=== PATIENT | female | born 1985 | race Caucasian/White ===

== ENCOUNTER 2016-12-25 15:40 | Inpatient (IN) | payer OTHER ==
[~2016-12-25] VITALS: Ht 162.6 cm; Wt 97.7 kg
[~2016-12-25 15:40] MED LIST: PHEN16.228; RABE20TA5
--- NOTE | 2016-12-25 16:22 | TRIAGE ---
OB Triage Datetime Report Generated by CPN: 12/25/2016 16:22 Datetime: 12/25/2016 16:00 Maternal Assessment Level of Consciousness: Fully Conscious DTR's/Clonus: DTRs 1+ Headache: Denies Blurred Vision: No Respiratory Effort: Unlabored Breath Sounds, Left: Clear and Equal Breath Sounds, Right: Clear and Equal Nausea/Vomiting: Denies RUQ Epigastric Pain: Denies Facial Edema: 1+ Labor Evaluation Frequency: OCC Monitor Mode: External Duration (sec)2399: 20-30 Quality: Mild Pattern: Normal: <= 5 Contractions in 10 Minutes Resting Tone [place]: Relaxed Heart Rate FHR Baseline Rate: 150 Monitor Mode: External US Variability: Moderate 6-25 bpm Accelerations: 15X15 Decelerations: None Category: Category I Pain Assessment Pain Scale: 0 Pain Presence: None/Denies Pain Type: N/A Pain Goal: 3 Vaginal Exam Membrane Status: Ruptured Membranes Rupture Method: Spontaneous Amniotic Fluid Amount: Large Amniotic Fluid Odor: None Nitrazine: Positive Datetime: 12/25/2016 15:46 EGA: 28.1 Datetime: 12/25/2016 15:45 Stage of : OB Triage Datetime: 12/25/2016 15:40 Time of Arrival: 12/25/2016 15:40 Arrived By: Ambulatory Chief Complaint: R/O SROM Movement: Present Contractions: Denies/Absent Rupture of Membranes: Denies Vaginal Bleeding: None Vaginal Discharge: Denies Recent Sexual Intercouse: Denies Abdominal Trauma: Not Applicable Patient Complaints: Other Additional Patient Complaints: NONE Time Provider Notified: 12/25/2016 15:51 Provider Notified: DAVID Initial Plan: U/S, LABS, ANTIBIOTICS, BETA
[2016-12-25 16:28] LABS: ADD SCAN DIFF NO
[2016-12-25] MEDS ORDERED: MISOPROSTOL 200 MCG TAB PR PRN (16:30)
[2016-12-25] MEDS ORDERED: CARBOPROST 250 MCG INJ IM PRN (16:30)
[2016-12-25] MEDS ORDERED: MAGNESIUM SULFATE 4 GM/100 ML 100 ML IV ONE (16:30)
[2016-12-25] MEDS ORDERED: METHYLERGONOVINE 0.2 MG INJ IM PRN (16:30)
[2016-12-25] MEDS ORDERED: OXYTOCIN 30 UNITS/LR 500 ML IV PRN (16:30)
[2016-12-25] MEDS: LACTATED RINGER'S 1,000 ML IV SCH ×3 (16:33→23:59)
[2016-12-25 16:34] LABS: BASOPHILS % 0.1 % (0.0-2.0); EOSINOPHILS # 0.2 10^3/ul (0.0-0.5); HEMOGLOBIN 10.3 g/dl (12.0-16.0); LYMPHOCYTES # 1.6 10^3/ul (0.8-2.9); LYMPHOCYTES % 10.7 % (15.0-51.0); MEAN CORPUSCULAR HEMOGLOBIN 31.4 pg (29.0-33.0); MEAN CORPUSCULAR HGB CONC 33.2 g/dl (32.0-37.0); MEAN CORPUSCULAR VOLUME 94.5 fl (82.0-101.0); MEAN PLATELET VOLUME 9.9 fl (7.4-10.4); MONOCYTE # 0.9 10^3/ul (0.3-0.9); MONOCYTES % 5.9 % (0.0-11.0); NEUTROPHIL # 12.3 10^3/ul (1.6-7.5); PLATELET COUNT 244 10^3/UL (140-415); RED BLOOD COUNT 3.28 10^6/ul (4.20-5.40); RED CELL DISTRIBUTION WIDTH 12.8 % (11.5-14.5)
[2016-12-25 16:42] LABS: ALBUMIN 3.4 g/dl (3.3-4.9); INR 0.9; PROTIME 12.1 Sec (12.2-14.2); PT RATIO 0.9
[2016-12-25 16:43] LABS: PARTIAL THROMBOPLASTIN TIME 28.6 Sec (25.0-35.0); POTASSIUM 3.7 mmol/L (3.5-5.1)
[2016-12-25 16:45] LABS: CREATININE 0.5 mg/dl (0.44-1.00)
[2016-12-25 16:46] LABS: TOTAL PROTEIN 6.8 g/dl (6.1-8.1); URIC ACID 3.9 mg/dl (3.1-7.9)
[2016-12-25] MEDS ORDERED: AMPICILLIN 2 GM/NS (PMX) 100 ML ONE (16:51)
[2016-12-25] MEDS: AMPICILLIN 2 GM/NS (PMX) 100 ML IVPB SCH ×2 (16:53→23:57)
[2016-12-25] MEDS: BETAMET NA PHOS/AC(6 MG/ML) 5ML INJ IM SCH (16:53)
--- NOTE | 2016-12-25 17:10 | RADRPT ---
PROCEDURE: Obstetrical ultrasound. CLINICAL INDICATION: , evaluation. Pelvic pain. Premature rupture of membranes TECHNIQUE: Transabdominal sonographic images of the pelvis are obtained. COMPARISON: No prior studies are available for comparison. FINDINGS: Single intrauterine gestation. There is a breech presentation. Measurements were made in order to determine age. The results are as follows: BPD = 6.84 cm HC = 25.02 cm AC = 21.53 cm FL = 4.89 cm Oligohydramnios is evident with no significant vertical pocket seen. Heart rate = 144 beats per minute The placenta is anterior. There is no evidence for an abruption or placenta previa. Ovaries are not visualized. IMPRESSION: Single intrauterine gestation of approximately 26 weeks 6 days by ultrasound criteria. [place] estimated weight = 926 g; <3 percentile for gestational age of 28 weeks 1 days. Oligohydramnios is evident without any significant vertical pocket of amniotic fluid identified comp atible with the history of premature rupture of membranes. RPTAT: AADD .Harvey Montoya MD, MD Date Time Electronically viewed and signed by .Harvey Montoya MD, on 12/25/2016 17:10 .B/
--- NOTE | 2016-12-25 17:19 | RADRPT ---
PROCEDURE: OB ultrasound for biophysical profile CLINICAL INDICATION: Biophysical profile. TECHNIQUE: Multiple sonographic images of the pelvis were obtained. Transabdominal view of the gr avid uterus are available for review. The images were reviewed on a PACS workstation. COMPARISON: Earlier study from the same date. FINDINGS: breathing movement = 2/2 tone = 2/2 motion = 2/2 Quantitative amniotic fluid volume = 0/2 KAT = 3.7 cm Single live intrauterine with cardiac activity at 146 beats per minute. There is a anterior placenta without previa. IMPRESSION: 1. Single living intrauterine gestation. 2. Biophysical profile = 03/02. 3. KAT = 3.7 cm consistent with oligohydramnios secondary to premature rupture of membranes. RPTAT: [facility] Physician Laurel Date Time Electronically viewed and signed by Physician Laurel on 12/25/2016 17:18 /
--- NOTE | 2016-12-25 18:15 | QN ---
Documentation Comment Laborist CTSP 2/2 decel. FHT back to 150s on entry. On review of FHT, variable shaped decels x2 noted to umesh of 80s. BP also reviewed and consistently 140-150s/70s Pt denies RODRIGUEZ, visual changes and RUQ pain SSE performed and cervix appears long and closed with clear fluid in vault A/P: PPROM at 28+1wks GA w/o e/o PTL, abruption or chorio and elevated BPs without sxs. Hx of C/S at 24wks GA ->Variable decels c/w oligo in the setting of PPROM. No e/o cord prolapse at this time. Continue resuscitative measures w/position changes, O2 and fluid bolus prn ->CPM for PPROM per Dr. Matson ->Straight cath urine specimen to assess for proteinuria, majority of labs needed for PreE evaluation ordered on admission and wnl Plan d/w pt. Questions answered to pt and partner's satisfaction YESSI HOOD MD Dec 25, 2016 18:15
[2016-12-25] MEDS: MAGNESIUM SULFATE 20 GM/500 ML 500 ML IV SCH (18:16)
[2016-12-25] MEDS: ERYTHROMYCIN LACTOBIONATE 500 MG in SOD CHLORIDE 0.9% 100 ML IVPB SCH (18:23)
[2016-12-25 18:25] LABS: ADD UMIC YES; URINE BILIRUBIN (Dip) NEGATIVE (NEGATIVE); URINE BLOOD (Dip) TRACE (NEGATIVE); URINE COLOR LT. YELLOW (YELLOW); URINE GLUCOSE (Dip) NEGATIVE (NEGATIVE); URINE KETONES (Dip) 15 (NEGATIVE); URINE LEUKOCYTE ESTERASE (Dip) TRACE (NEGATIVE); URINE NITRITE (Dip) NEGATIVE (NEGATIVE); URINE TOTAL PROTEIN (Dip) NEGATIVE (NEGATIVE); URINE UROBILINOGEN (Dip) 0.2 E.U./dL (0.1-1.0)
[2016-12-25 18:41] LABS: BARBITURATES Negative (NEGATIVE); BENZODIAZEPINES Negative (NEGATIVE); CANNABINOIDS Negative (NEGATIVE); COCAINE Negative (NEGATIVE); OPIATES Negative (NEGATIVE)
[2016-12-25 18:50] LABS: SQUAMOUS EPITHELIAL CELL,UR FEW
[2016-12-26] MEDS: ERYTHROMYCIN LACTOBIONATE 500 MG in SOD CHLORIDE 0.9% 100 ML IVPB SCH ×4 (00:23→17:44)
[2016-12-26] MEDS: LACTATED RINGER'S 1,000 ML IV SCH ×4 (00:30→22:30)
[2016-12-26] MEDS: MAGNESIUM SULFATE 20 GM/500 ML 500 ML IV SCH ×3 (02:29→22:34)
[2016-12-26] MEDS ORDERED: MAGNESIUM SULFATE 20 GM/500 ML 500 ML IV SCH (05:46)
[2016-12-26] MEDS ORDERED: MAGNESIUM SULFATE 4 GM/100 ML 100 ML IV ONE (06:00)
[2016-12-26] MEDS: AMPICILLIN 2 GM/NS (PMX) 100 ML IVPB SCH ×3 (06:08→16:56)
--- NOTE | 2016-12-26 07:46 | HP ---
DATE OF ADMISSION: 12/25/2016 HISTORY OF PRESENT ILLNESS: This is a 31-year-old lady, 4, para 1 with 2 spontaneous aborti ons. She is about 28 weeks . Admitted because of breech presentation with ruptured bag of alfonso at 9:50 a.m. on 12/25/2016 followed by mild irregular contractions. She had care in my [facility] office, and the care was uneventful. PAST PERSONAL HISTORY: No history of diabetes, TB, asthma. ALLERGIES: NO ALLERGIES. SOCIAL HISTORY: The patient does not smoke. She does not drink. MEDICATIONS: She does not take any drugs except her iron and vitamins. GYNECOLOGICAL HISTORY: She had menarche at the age of 13, every 28 days interval, 3 to 4 days' dura tion, and moderate in amount. FAMILY HISTORY: Father has diabetes and hypertension. OBSTETRICAL HISTORY: She is 4, para 1. Her first delivery was 12 years ago at 24 weeks by weighing 685 g. REVIEW OF SYSTEMS: CARDIOVASCULAR: No chest pains. RESPIRATORY: No cough. GASTROINTESTINAL: No diarrhea, no vomiting. GENITOURINARY: No dysuria. PHYSICAL EXAMINATION: GENERAL: Reveals a conscious coherent lady and in no acute distress. VITAL SIGNS: Her blood pressure 120/80, pulse rate 80 per minute, respirations 16 per minute. BREASTS: Within normal limits. HEART: Within normal limits. LUNGS: Within normal limits. ABDOMEN: Soft. No organomegaly. Fundic height 28 cm. heart tones 140 per minute. SPECULUM exam: Reveals the cervix to be closed with clear fluid coming from the vagina. Positive Nitrazine was noted. RECTAL AND PELVIC: Confirmed the pelvic findings. EXTREMITIES: No pedal edema. ADMITTING DIAGNOSIS: A 28 weeks intrauterine with premature rupture of membranes, possibl e labor. The patient was planned to have betamethasone on December 29, erythromycin, and magnesium sulfate. Th e plans were explained to the patient, and she understood everything totally. The risks, benefits, alternatives were discussed with her as well. Dictated By: NIRMAL BOWLING/NTS Conf#: [id number] DID#: [id number]
[2016-12-26] MEDS: FERROUS SULFATE (EC) 325 MG TAB PO SCH (09:24)
[2016-12-26] MEDS: MULTIVIT/MIN/FOLATE/IRON/PREN TAB PO SCH (09:24)
[2016-12-26 10:04] VITALS: Ht 162.6 cm; Wt 97.7 kg
--- NOTE | 2016-12-26 15:18 | CONS ---
DATE OF ADMISSION: 12/25/2016 DATE OF CONSULTATION: REFERRING PHYSICIAN: Dr. Paty Matson. HISTORY OF PRESENT ILLNESS: I was asked to talk with this mother who is in premature labor with ges tational age of 28.1 weeks and estimated weight of 926 grams. Mother is a 31-year-old 4, para 1, SAB 2 with an EDC of 03/18. Maternal labs show blood type O positive, antibody negative , RPR nonreactive, rubella immune, HBsAg negative, GC and chlamydia cultures negative. There were n o other problems documented during . Mother ruptured on 12/25/2016 a.m. and was subsequent ly admitted to the hospital in labor. She was started on magnesium sulfate on 12/25/2016 at 1630 hours as well as received 1 dose of betamethasone at 1640 hours. She was also started on anti biotics. I talked with both mother as well as father about the infant being at 28 weeks with an estim ated weight of 926 grams, less than 3rd percentile on ultrasound. These parents had a 24-week premature who is 12 years old now and doing well at the present time with no developmental p roblems, but however, has problems with eyesight. Parents are extremely familiar with the course in NICU as they have a 24-weeker. I discussed with them about mother receiving betamethasone as well as risk of respiratory distress s yndrome and treatment with oxygen administration, high-flow nasal cannula, CPAP as well as nasal IMV and surfactant administration if oxygen requirement is high. I also discussed about high risk of a pnea of prematurity and treatment with caffeine and nasal cannula as well as CPAP as required. Disc ussed about high risk of infection due to prematurity as well as rupture of membranes and treatment with antibiotics. Mother was also noted to be GBS positive on 11/17/2016. I also discussed about t he infant to be monitored for risk of sepsis during the entire hospitalization. Discussed about the being n.p.o. on admission and subsequently to be started on feedings when clinically stable with gavage feedings and TPN as well as a PICC line placement for TPN. Parents understand the risks and benefits of TPN. I also discussed about hyperbilirubinemia, feeding intolerance, including gas troesophageal reflux and risk for necrotizing enterocolitis. Discussed about the possibility of oxy gen requirement for long periods of time and possible oxygen requirement at the time of discharge. Discussed about the risk of intraventricular hemorrhage being 28 weeks premature , and at risk for neurodevelopmental delay due to prematurity as well as intraventricular hemorrhage. Discussed about length of hospitalization for 10 to 12 weeks depending on infant's clinical course a s well as response to treatment. Discussed about the mortality as well as morbidity for a 28-week p remature , including survival of up to 80 to 90%. Parents do understand that the infant is at risk for increased risk of neurodevelopmental delay and mortality and morbidity due to prematurity as well as rupture of membranes. I also discussed about procedures during NICU including intubation, umbilical arterial and venous ca theterization, PICC line placement, PAL line placement as needed and blood transfusions. As stated, the parents of a 24-week premature are extremely familiar with all the procedures and answered all questions, the discussion was concluded. Parents had no further questions. Dictated By: ZIGGY FREY/WARREN Conf#: [id number] DID#: [id number]
[2016-12-26] MEDS: BETAMET NA PHOS/AC(6 MG/ML) 5ML INJ IM SCH (17:00)
[2016-12-27] MEDS: ERYTHROMYCIN LACTOBIONATE 500 MG in SOD CHLORIDE 0.9% 100 ML IVPB SCH ×4 (00:05→18:50)
[2016-12-27] MEDS: AMPICILLIN 2 GM/NS (PMX) 100 ML IVPB SCH ×4 (00:05→17:45)
[2016-12-27] MEDS: MAGNESIUM SULFATE 20 GM/500 ML 500 ML IV SCH ×2 (08:25→17:51)
[2016-12-27] MEDS: FERROUS SULFATE (EC) 325 MG TAB PO SCH (09:21)
[2016-12-27] MEDS: DOCUSATE SODIUM 100 MG CAP PO SCH ×2 (09:21→21:14)
[2016-12-27] MEDS: FAMOTIDINE 20 MG TAB PO SCH ×2 (09:21→21:14)
[2016-12-27] MEDS: MULTIVIT/MIN/FOLATE/IRON/PREN TAB PO SCH (09:21)
--- NOTE | 2016-12-27 13:16 | CONS ---
DATE OF ADMISSION: 12/25/2016 DATE OF CONSULTATION: 12/26/2016 HISTORY OF PRESENT ILLNESS: The patient is at 28 weeks and 2 days who presented with rupture of mem brane on Monday. She was subsequently placed on magnesium sulfide, betamethasone was started. She was also placed on IV antibiotics, ampicillin, and erythromycin. She has a history consistent with delivery at 24 weeks. PAST MEDICAL HISTORY: Negative. OBSTETRIC HISTORY: Per ____. PHYSICAL EXAMINATION: VITAL SIGNS: Stable, no fever. Physical exam Deferred. heart tone reassuring for gestational age, some irritability. IMPRESSION: Intrauterine at 28 weeks and 2 days, premature rupture of membrane da y #2. On magnesium sulfate status post betamethasone x1, on IV antibiotics, ampicillin, and erythro mycin. History of a delivery at 24 weeks. RECOMMENDATIONS: 1. Continue with the magnesium sulfate 24 hours after the second dose of betamethasone. 2. Continue with the IV antibiotics for 5 days. 3. Delivery is recommended if there are non-reassuring heart tones, chorioamnionitis. Otherw ise, at 34 weeks. NICU consult. Continuous heart tone monitoring. Dictated By: MEJIA GHOSH/NTS Conf#: [id number] DID#: [id number]
[2016-12-27] MEDS: LACTATED RINGER'S 1,000 ML IV SCH (17:45)
[2016-12-28] MEDS: AMPICILLIN 2 GM/NS (PMX) 100 ML IVPB SCH ×2 (00:03→05:41)
[2016-12-28] MEDS: ERYTHROMYCIN LACTOBIONATE 500 MG in SOD CHLORIDE 0.9% 100 ML IVPB SCH ×2 (01:03→06:46)
[2016-12-28] MEDS ORDERED: MAGNESIUM SULFATE 20 GM/500 ML 500 ML IV SCH (08:30)
[2016-12-28] MEDS ORDERED: FENTAnyl 50 MCG/ML VIAL IV ONE (09:00)
[2016-12-28] MEDS ORDERED: LACTATED RINGER'S 1,000 ML IV SCH (09:17)
[2016-12-28] MEDS ORDERED: OXYTOCIN 30 UNITS/LR 500 ML IV SCH (09:30)
[2016-12-28] MEDS ORDERED: METHYLERGONOVINE 0.2 MG INJ IM PRN ×2 (09:30→10:30)
[2016-12-28] MEDS ORDERED: CEFAZOLIN 2 GM/50 ML (PMX) 50 ML IVPB SCH (09:30)
[2016-12-28] MEDS ORDERED: MISOPROSTOL 200 MCG TAB PR PRN ×2 (09:30→10:30)
[2016-12-28] MEDS ORDERED: OXYTOCIN 30 UNITS/LR 500 ML IV PRN ×2 (09:30→10:30)
[2016-12-28] MEDS ORDERED: CARBOPROST 250 MCG INJ IM PRN ×2 (09:30→10:30)
--- NOTE | 2016-12-28 09:43 | RADRPT ---
PROCEDURE: Limited OB ultrasound CLINICAL INDICATION: Vaginal bleeding TECHNIQUE: Sonographic evaluation to assess the placenta was performed. Transabdominal imaging of the gravid uterus was performed. COMPARISON: OB ultrasound dated 12/25/2016 FINDINGS: There is a single live intrauterine with cardiac activity, with a heart rate o f 121 bpm. position is breech. The placenta is anterior. There is no evidence of placental abruption or previa. The KAT measures 2.5 cm. IMPRESSION: 1. There is no evidence of placental abruption or previa. 2. Breech presentation. 3. Oligohydramnios. KAT measures 2.5 cm. RPTAT: HH .Katelynn Oviedo MD, MD Date Time Electronically viewed and signed by .Katelynn Oviedo MD, on 12/28/2016 09:42 .G/
[2016-12-28] MEDS ORDERED: OXYTOCIN 30 UNITS/LR 500 ML IV ONE (09:54)
--- NOTE | 2016-12-28 10:22 | QN ---
Documentation Comment I was called due to immediate unavailability of the attending OB, when the patient was complaining of feeling cramps and contractions. Attended to the bed side. Patient was in mild- moderate distress. NST: Variables down to 90 with quick recovery. SSE: Cervix appears to be closed and long. Assessment: 1. IUP at 28 weeks and 4 days Admitted for PPROM S/p Magnesium S/p 2 doses of steriod=, currently > 24 hours post Magnesium. 2 hours ago magnesium stopped. now feeling cramps History of PTD at 24 weeks History of section x 1 On Amp/ erythro for latency s/p timur/ zuhair consult Plan: restart Magnesium 2 grams/ hour Continuos monitoring I have discussed with the patient about possibility of section in case of break through tocolysis. Will monitor closely risks and benefits of section including risk for infection, bleeding, damage to adjacent structures including bowel and bladder and risk for blood transfusion including but not limited to transfusion reactions and HIV. Hepatitis B and C discussed. informed constent obtained Patient will be transferred to L&D for close monitoring NPO MANUEL BEARD MD Dec 28, 2016 10:22
[2016-12-28 10:29] LABS: AADO2 Cord Arterial 66.4 mmHg; Arterial Cord Blood pCO2 44.1 mmHG (25-50); CBA Oxygen Sat 62.9 mmHG; CBA Total Hemglobin 15.4 g/dl; Cord Blood Arterial pO2 30.5 mmHG (15.0-45.0); Fraction OxyHgb Cord Arterial 61.4 %; MODE ROOM AIR; MetHgb Cord Arterial 1.1 %; Sample Type CBA
[2016-12-28] MEDS: LACTATED RINGER'S 1,000 ML IV* SCH ×2 (10:29→18:29)
--- NOTE | 2016-12-28 10:29 | LDN ---
Date/Time of Note Date/Time of Note DATE: 12/28/16 TIME: 10:22 Delivery Summary I was called to evaluate this patient in L&D due to feeling significant pelvic pressure. Attended to the patient bedside. Patient was feeling significant urge. Exam performed. Complete breech presentation with the buttocks and legs in the perineum noted at this stage +2. Immediately anesthesia and or notified. While my hand was inside the vagina pushing the presenting part up to the vagina transfer the patient to the OR for emergency . NICU was also notified. While in the OR after a short period of time patient was feeling significant urge to push. Breech delivery was performed in the OR. after delivery of the Buttock and extremities, the torso was gently grapsed and pulled along the maternal body axis until axillary fossa was visible. Then by clamping the thrumb arround the arm, first anterior shoulder, and then subsequently posterior shoulder with a similar maneuver was delivered and subsequently the head was delivered spontaneously. Cord blood and cord gas was obtained. Baby was immediately handed to the attnedant nurses until NICU team arrives. Baby's score 7 and 8. Weight 2 lbs. 5 oz. baby had spontaneous breathing but with grunting been Placenta delivered spontaneously after about 10 minutes. He was evaluated there was evidence of 10% placenta abruption. Three-vessel cord was noted. There was moderate to severe bleeding immediately after delivery of a placenta that controlled using IV Pitocin and Methergine. Fundus noted to be firm after this. EBL 400 cc. No perineal tear noted. Patient tolerated the procedure well. Lap counts were correct. NICU at this time where evaluating the baby and are available at bedside Weeks of Gestation 28 and 4 weeks Placenta Delivered: Spontaneously Meconium: Thick Episiotomy: No Laceration repair: None Anesthesia type: None Estimated blood loss: 400 Sponge & Needle done & correct: Yes All needle counts correct: Yes Any foreign bodies felt in the: No Problems: Delivery Information Sex Infant Sex: female Apgars 1 Minute: 7 5 Minute: 8 Suctioning Nose & mouth suctioned at timur: No Delee suction performed: No Umbilical Cord Umbilical cord with: 3 Vessels Cord presentations: no nuchal cord Cord Blood was obtained: Yes MANUEL BEARD MD Dec 28, 2016 10:29
[2016-12-28 10:30] LABS: CBV Base Excess -6.6 mmol/L; CBV COHb 1.2 %; CBV Oxygen Sat 60.9 mmHG; CBV Total Hemglobin 14.6 g/dl; Cord Blood Venous AADO2 70.1 mmHg; Cord Blood Venous pO2 26.6 mmHG (15.0-45.0); Fraction OxyHgb Cord Venous 59.4 %; MODE ROOM AIR; MetHgb Cord Venous 1.2 %; Sample Type CBV
[2016-12-28] MEDS ORDERED: DIPHENHYDRAMINE 25 MG CAP PO PRN (10:30)
[2016-12-28] MEDS: SENNA/DOCUSATE NA (8.6MG/50MG) TAB PO SCH ×2 (10:30→20:40)
[2016-12-28] MEDS ORDERED: WITCH HAZEL/GLYCERIN PAD PR PRN (10:30)
[2016-12-28] MEDS ORDERED: ZOLPIDEM 5 MG TAB PO PRN (10:30)
[2016-12-28] MEDS ORDERED: LANOLIN 7 GM TUBE TOP PRN (10:30)
[2016-12-28] MEDS ORDERED: ONDANSETRON 4 MG INJ IV PRN (10:30)
[2016-12-28] MEDS ORDERED: ACETAMINOPHEN/CODEINE #3 TAB PO PRN (10:30)
[2016-12-28] MEDS ORDERED: GENTAMICIN 360 MG in SOD CHLORIDE 0.9% 100 ML IVPB SCH (10:30)
[2016-12-28] MEDS: IBUPROFEN 600 MG TAB PO SCH ×2 (12:00→17:57)
[2016-12-28 13:25] VITALS: BP 150/84; PULSE 84; RESP 21
[2016-12-28] MEDS ORDERED: CLINDAMYCIN 900 MG/D5W (PMX) 50 ML IV SCH (14:00)
[2016-12-28 14:25] VITALS: BP 142/83; PULSE 75; RESP 19
[2016-12-28 16:10] VITALS: BP 145/82; PULSE 85; RESP 20
[2016-12-28 20:00] VITALS: BP 130/63; PULSE 81; RESP 20
[2016-12-29] MEDS: IBUPROFEN 600 MG TAB PO SCH ×4 (00:31→17:16)
[2016-12-29] MEDS: LACTATED RINGER'S 1,000 ML IV* SCH ×3 (02:29→18:29)
[2016-12-29 04:45] VITALS: BP_SYST 119; BP_SYST 120; BP_DIAS 66; BP_DIAS 72; PULSE 59; PULSE 79; RESP 18; RESP 19
[2016-12-29 07:30] VITALS: BP 131/63; PULSE 64; RESP 19
[2016-12-29] MEDS: SENNA/DOCUSATE NA (8.6MG/50MG) TAB PO SCH ×2 (09:00→21:00)
[2016-12-29 09:27] LABS: ADD SCAN DIFF NO
[2016-12-29 09:30] LABS: BASOPHILS % 0.2 % (0.0-2.0); EOSINOPHILS % 0.3 % (0.0-7.0); HEMATOCRIT 28.6 % (37.0-47.0); HEMOGLOBIN 9.2 g/dl (12.0-16.0); LYMPHOCYTES # 1.8 10^3/ul (0.8-2.9); MEAN CORPUSCULAR HEMOGLOBIN 31.7 pg (29.0-33.0); MEAN CORPUSCULAR HGB CONC 32.2 g/dl (32.0-37.0); MEAN CORPUSCULAR VOLUME 98.6 fl (82.0-101.0); MONOCYTE # 0.6 10^3/ul (0.3-0.9); MONOCYTES % 4.4 % (0.0-11.0); NEUTROPHILS % 80.1 % (39.0-77.0); NUCLEATED RED BLOOD CELLS% 0.2 /100WBC (0.0-0.0); PLATELET COUNT 227 10^3/UL (140-415); RED CELL DISTRIBUTION WIDTH 12.8 % (11.5-14.5); WHITE BLOOD COUNT 12.5 10^3/ul (4.8-10.8)
[2016-12-29 11:48] VITALS: BP 131/76; PULSE 69; RESP 19
[2016-12-29 16:05] VITALS: BP 138/72; RESP 19
[2016-12-29 19:45] VITALS: BP 137/76; PULSE 70; RESP 20
[2016-12-29 23:50] VITALS: BP 133/73; PULSE 65; RESP 17
[2016-12-30] MEDS: IBUPROFEN 600 MG TAB PO SCH ×3 (00:04→11:33)
[2016-12-30] MEDS: LACTATED RINGER'S 1,000 ML IV* SCH (02:29)
[2016-12-30 04:15] VITALS: BP 114/69; PULSE 19; RESP 19
[2016-12-30 07:08] LABS: ADD SCAN DIFF NO
[2016-12-30 07:14] LABS: BASOPHILS % 0.3 % (0.0-2.0); EOSINOPHILS # 0.2 10^3/ul (0.0-0.5); EOSINOPHILS % 1.8 % (0.0-7.0); HEMATOCRIT 26.9 % (37.0-47.0); HEMOGLOBIN 8.9 g/dl (12.0-16.0); LYMPHOCYTES # 2.3 10^3/ul (0.8-2.9); LYMPHOCYTES % 22.9 % (15.0-51.0); MEAN CORPUSCULAR HEMOGLOBIN 32.1 pg (29.0-33.0); MEAN CORPUSCULAR HGB CONC 33.1 g/dl (32.0-37.0); MEAN CORPUSCULAR VOLUME 97.1 fl (82.0-101.0); MEAN PLATELET VOLUME 9.7 fl (7.4-10.4); MONOCYTE # 0.7 10^3/ul (0.3-0.9); MONOCYTES % 7.1 % (0.0-11.0); NEUTROPHIL # 6.6 10^3/ul (1.6-7.5); NEUTROPHILS % 66.7 % (39.0-77.0); PLATELET COUNT 229 10^3/UL (140-415); RED BLOOD COUNT 2.77 10^6/ul (4.20-5.40); RED CELL DISTRIBUTION WIDTH 12.5 % (11.5-14.5); WHITE BLOOD COUNT 9.9 10^3/ul (4.8-10.8)
[2016-12-30 08:30] VITALS: BP 135/76; PULSE 60; RESP 18
[2016-12-30] MEDS ORDERED: MEASLES,MUMPS,RUBELLA VACCINE INJ SC* ONE (09:00)
[2016-12-30] MEDS: SENNA/DOCUSATE NA (8.6MG/50MG) TAB PO SCH (09:00)
[2016-12-30] MEDS ORDERED: DIPHTH/TET/ACEL PERTUSS (ADULT) 0.5 ML VIAL IM* ONE (09:00)
[2016-12-30] MEDS ORDERED: VARICELLA VACCINE LIVE/PF 1,350 UNIT/0.5 ML ML SC* ONE (09:00)
--- NOTE | 2017-01-01 20:45 | PN ---
Date/Time of Note Date/Time of Note DATE: 12/26/16 TIME: 11:00 OB Subjective Subjective Subjective PATIENT FEELS GOOD NO CONTRACTION STILL WITH FLUID COMING OUT OF VAGINA OB Objective Objective Objective AFEBRILE VITAL SIGN STABLE ABDOMEN SOFT NO TENDERNESS FHT PHYSICAL EXAM LEAKING OF FLUID FROM VAGINA OB Assessment/Plan Other Assessment: IUP 28 01/29 PROM Other plan: CONTINUE WITH PRESENT MANAGEMENT LABS REVIEWED NIRMAL HERNANDEZ MD Jan 01, 2017 20:45
--- NOTE | 2017-01-01 20:48 | PN ---
Date/Time of Note Date/Time of Note DATE: 12/27/16 TIME: 21:00 OB Subjective Subjective Subjective PATIENT FEELS GOOD NO PAIN OB Objective Objective Objective AFIBRILE VITAL SIGN STABLE ABDOMEN SOFT FHT OK NO TENDERNESS EXTREMITIES NO CALF TENDERNESS OB Assessment/Plan Other Assessment: IUP 28 03/01 PROM Other plan: CONTINUE WITH EXPECTANT MANAGEMENT NIRMAL HERNANDEZ MD Jan 01, 2017 20:48
--- NOTE | 2017-01-01 21:25 | PN ---
Date/Time of Note Date/Time of Note DATE: 12/29/16 TIME: 13:00 Assessment/Plan VTE Prophylaxis VTE Prophylaxis Intervention: ambulation Lines/Catheters IV Catheter Type (from Nrs): Saline Lock Assessment/Plan Chief Complaint/Hosp Course POST DAY 1 Problems: Assessment/Plan HOME TOMORROW COUNSELED INSTRUCTED RETURN TO CLINIC IN 2 WEEKS Subjective 24 Hr Interval Summary Free Text/Dictation GOOD BOWEL MOVEMENT GOOD URINE OUTPUT PATIENT FEELS GOOD Exam/Review of Systems Vital Signs Vitals Vital Signs Date Time Temp Pulse Resp B/P Pulse Ox O2 Delivery O2 Flow Rate FiO2 12/30/16 08:30 98.2 60 18 135/76 Room Air Exam AFIBRILE VITAL SIGN STABLE BREAST NOT ENGORGED ABDOMEN SOFT UTERUS FIRM LOCHIA NORMAL EXTREMITIES NO CALF TENDERNESS Results Result Diagram: 12/30/16 0640 NIRMAL HERNANDEZ MD Jan 01, 2017 21:25
== END 2016-12-30 14:04 | disposition home or self-care (01) | DRG 774 ==
LOC: OBT 15:40 → L-D 15:44 → OBT 15:45 → L-D 15:45 → OBG 12-27 07:13 → L-D 12-28 08:55 → PP1 12-28 14:06
PROVIDERS: ADMIT Obstetrics & Gynecology; ATTEND Obstetrics & Gynecology
PROC: 10E0XZZ Delivery of Products of Conception, External Approach (ICD-10-PCS; principal; 2016-12-28)
DX: O42.913 Preterm premature rupture of membranes, unspecified as to length of time between rupture and onset of labor, third trimester (principal); O45.93 Premature separation of placenta, unspecified, third trimester; O60.14X0 Preterm labor third trimester with preterm delivery third trimester, not applicable or unspecified; O72.1 Other immediate postpartum hemorrhage; O32.1XX0 Maternal care for breech presentation, not applicable or unspecified; O99.824 Streptococcus B carrier state complicating childbirth; Z3A.28 28 weeks gestation of pregnancy; Z37.0 Single live birth; O77.0 Labor and delivery complicated by meconium in amniotic fluid
CPT/HCPCS: 36415; 36600; 76815; 76818; 80053; 80307; 81001; 81003; 82803; 83735; 84560; 85025; 85384; 85610; 85730; 86592; 86850; 86900; 86901; 88305; 90715; 90716; A4310; G0463; J0290; J0702; J1364; J2590; J3010; J3475; J7120

== ENCOUNTER 2018-10-20 07:07 | Emergency (ER) | payer OTHER ==
[~2018-10-20] VITALS: Wt 100.0 kg
[2018-10-20 07:11] VITALS: BP 140/89; PULSE 88; RESP 18
[2018-10-20] MEDS ORDERED: ACETAMINOPHEN 325 MG TAB PO ONE (08:00)
--- NOTE | 2018-10-20 09:57 | ERD ---
ER Documentation Chief Complaint Chief Complaint 8 weeks pregnat with pelvic pain HPI 33-year-old female presents with approximately 8-week by dates. She does have some vaginal bleeding and cramping and slight clots since last night. She states she had a ultrasound 3 weeks ago which shows a sac and possibly 4- week . She is a G5 para 2. She denies fevers, vomiting, noted tissue. ROS All systems reviewed and are negative except as per history of present illness. Medications Home Meds No Active Prescriptions or Reported Meds Allergies Allergies: Coded Allergies: No Known Drug Allergies (Verified Allergy, Mild, 10/20/18) PMhx/Soc History of Surgery: No Anesthesia Reaction: No Hx Neurological Disorder: No Hx Respiratory Disorders: No Hx Cardiac Disorders: No Hx Psychiatric Problems: No Hx Miscellaneous Medical Probl: Yes (miscarriage 2 x) Hx Alcohol Use: No Hx Substance Use: No Hx Tobacco Use: No FmHx Family History: No diabetes, No coronary disease, No other Physical Exam Vitals Vital Signs Date Temp Pulse Resp B/P (MAP) Pulse Ox O2 O2 Flow FiO2 Time Delivery Rate 10/20/18 97.8 88 18 140/89 99 07:11 (106) Physical Exam Const: No acute distress Head: Atraumatic Eyes: Normal Conjunctiva ENT: Normal External Ears, Nose and Mouth. Neck: Full range of motion. No meningismus. Resp: Clear to auscultation bilaterally Cardio: Regular rate and rhythm, no murmurs Abd: Soft, mild suprapubic tenderness. No rebound and no tenderness McBurney's point. Non distended. Normal bowel sounds Skin: No petechiae or rashes Back: No midline or flank tenderness Ext: No cyanosis, or edema Neur: Awake and alert Psych: Normal Mood and Affect Result Diagram: 10/20/18 0830 Results 24 hrs Laboratory Tests Test 10/20/18 08:11 10/20/18 08:30 Urine Color STRAW Urine Clarity SLIGHTLY CLOUDY Urine pH 8.0 Urine Specific [place] 1.003 Urine Ketones NEGATIVE mg/dL Urine Nitrite NEGATIVE mg/dL Urine Bilirubin NEGATIVE mg/dL Urine Urobilinogen NEGATIVE mg/dL Urine Leukocyte Esterase NEGATIVE Alex/ul Urine Microscopic RBC 43 /HPF Urine Microscopic WBC 11 /HPF Urine Squamous Epithelial Cells FEW /HPF Urine Bacteria FEW /HPF Urine Hemoglobin 3+ mg/dL Urine Glucose NEGATIVE mg/dL Urine Total Protein NEGATIVE mg/dl White Blood Count 6.9 10^3/ul Red Blood Count 4.11 10^6/ul Hemoglobin 12.6 g/dl Hematocrit 38.2 % Mean Corpuscular Volume 92.9 fl Mean Corpuscular Hemoglobin 30.7 pg Mean Corpuscular Hemoglobin Concent 33.0 g/dl Red Cell Distribution Width 12.2 % Platelet Count 238 10^3/UL Mean Platelet Volume 10.0 fl Immature Granulocytes % 0.300 % Neutrophils % 60.1 % Lymphocytes % 29.7 % Monocytes % 6.4 % Eosinophils % 3.1 % Basophils % 0.4 % Nucleated Red Blood Cells % 0.0 /100WBC Immature Granulocytes # 0.020 10^3/ul Neutrophils # 4.1 10^3/ul Lymphocytes # 2.0 10^3/ul Monocytes # 0.4 10^3/ul Eosinophils # 0.2 10^3/ul Basophils # 0.0 10^3/ul Nucleated Red Blood Cells # 0.0 10^3/ul Beta HCG, Quantitative 7389.0 mIU/ml Current Medications Medications Dose Sig/Francisco Start Time Status Last (Trade) Ordered Route PRN Stop Time Admin Dose Reason Admin 650 mg ONCE ONCE 10/20/18 DC 10/20/18 Acetaminophen PO 08:00 08:06 (Tylenol 10/20/18 08:01 Tab) Procedures/MDM Patient is Rh+. Quantitative hCG shows approximately 7500. Pelvic ultrasound shows approximately 6-week gestational sac without identifiable pole or yolk sac. There is no adnexal masses. Patient was stable throughout the ER course. Patient presents with vaginal bleeding and cramping of early . History suggest likely missed miscarriage or threatened given similar ultrasound by report 3 weeks ago. Ectopic cannot be completely ruled out. I am recommending a 2- day recheck of hormones otherwise return sooner for fevers, worsening pain, clots, additional symptoms. 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 Current signs or symptoms do not suggest appendicitis, surgical abdomen, additional emergent causes of current complaints. Departure Diagnosis: Primary Impression: Vaginal bleeding before 22 weeks gestation Condition: Stable Patient Instructions: Vaginal Bleed in , Missed Miscarriage Additional Instructions: Ultrasound shows only very early signs of of approximately 6 weeks. May be possible early or missed miscarriage given not corresponding to dates. Recommend repeat check hormone level in 2 days. Recheck sooner for fevers, vomiting, new or worsening symptoms. SINDHU MALIK MD Oct 20, 2018 09:57
== END 2018-10-20 09:58 | disposition home or self-care (01) ==
LOC: FTE 07:07
DX: O20.9 Hemorrhage in early pregnancy, unspecified (principal); R10.2 Pelvic and perineal pain; Z3A.08 8 weeks gestation of pregnancy
CPT/HCPCS: 76801; 76817; 81001; 84702; 85025; 86900; 86901; Z7502; Z7610